=== PATIENT | male | born 1955 | race Caucasian/White ===

== ENCOUNTER 2024-07-12 10:22 | Outpatient (RCR) | payer MEDICARE, SELFPAY ==
[2024-07-12 10:30] LABS: Absolute Basophil Count 0.04 10^3/uL (0.0-0.2); Absolute Eosinophil Count 0.15 10^3/uL (0.0-0.7); Absolute Monocyte Count 0.44 10^3/uL (0.1-0.8); Absolute Neutrophil Count 2.31 10^3/uL (1.2-6.7); Eosinophils % 3.8 %; HGB 14.6 g/dL (13.5-17.5); Lymphocytes % 25.4 %; MCH 28.9 pg (27.0-33.0); MCHC 33.2 % (32.0-36.0); MCV 87 fL (80-95); MPV 9.1 fL (8.0-11.0); Monocytes % 11.2 %; Neutrophils % 58.6 %; Platelet Count 169 10^3/uL (130-400); RBC 5.05 10^6/uL (4.36-5.78); RDW 14.7 % (11.8-14.1); RDW-SD 47.1 fL; WBC 3.94 10^3/uL (4.4-10.8)
[2024-07-12] MEDS: Normal Saline Flush 10 ML SYR IVP (10:45)
[2024-07-12 10:56] LABS: ALT 24 U/L (16-63); AST 27 U/L (15-37); Albumin 3.6 g/dL (3.4-5.0); Alkaline Phosphatase 78 U/L (46-116); Anion Gap 2.9 mmol/L (3-11); BUN 18 mg/dL (7-18); Bilirubin, Total 0.49 mg/dL (0.2-1.0); CO2 30.1 mmol/L (21.0-32.0); CREATININE 0.8 mg/dL (0.70-1.30); Chloride 109 mmol/L (98-107); FREE T4 0.77 ng/dL (0.76-1.46); Glucose 96 mg/dL (74-106); Potassium 4.1 mmol/L (3.5-5.1); Sodium 142 mmol/L (136-145); TSH 3.45 uIU/mL (0.36-3.74); Total Protein 7.4 g/dL (6.4-8.2)
== END 2024-08-07 23:59 | disposition home or self-care (01) ==
LOC: INF 10:22
PROVIDERS: Visit Provider Internal Medicine Medical Oncology
DX: C15.9 Malignant neoplasm of esophagus, unspecified (principal); Z45.2 Encounter for adjustment and management of vascular access device
CPT/HCPCS: 36591; 80053; 84439; 84443; 85025